=== PATIENT | female | born 1975 | race Caucasian/White ===

== ENCOUNTER 2018-03-28 16:56 | Emergency (ER) | payer BC ==
[~2018-03-28] VITALS: Ht 160 cm; Wt 64.4 kg
[~2018-03-28 16:56] MED LIST: BUSPIRONE HCL5 MG PO; CYMBALTA30 MG PO; LOSARTAN POTASS50 MG PO
[2018-03-28] MEDS ORDERED: ACETAMINOPHEN 325 MG TAB ONE (19:12)
[2018-03-28] MEDS ORDERED: ACETAMINOPHEN 325 MG TAB PO ONE ×2 (19:15→19:30)
--- NOTE | 2018-03-28 20:27 | Diagnostic Imaging Report ---
History: Fall, pain Comparison studies:None Technique: Axial images were obtained from the brain and cervical spine. Coronal and sagittal images reconstructed from the axial data. Intravenous contrast: None Findings: Head CT: Scalp/skull: No acute abnormalities. Left frontoparietal craniotomy changes. No fractures, blastic or lytic lesions. Brain sulci: Mildly prominent, more than expected for patients age. Ventricles: Normal in size and configuration. No hydrocephalus. Extra-axial spaces: No masses. No fluid collections. Parenchyma: No abnormal densities. No masses, hemorrhage, acute or chronic cortical vascular insults. Sellar/suprasellar region: No abnormalities. Craniocervical junction: Patent foramen magnum. No Chiari one malformation. Cervical spine CT: Fractures: None. Soft tissues: No gross abnormalities. Atlantoaxial articulation: No acute abnormality. Alignment: Mild reversal of the normal lordosis centered at C5-6. No scoliosis. Cervicomedullary junction: No abnormalities. Patent foramen magnum. Vertebrae: No infection or neoplasm. Degenerative changes: None. Incidental findings: At C5-6, disc degeneration and posterior disc osteophyte complex with patent canal and foramina. At C6-7, disc degeneration, disc osteophyte complex and uncinate process hypertrophy results in mild spinal canal stenosis and moderate foraminal narrowing . Impression: Head CT: 1. No acute abnormality. Cervical spine CT: 1. No acute abnormalities. 2. Cannot exclude ligament, spinal cord and or vascular abnormalities on the basis of this examination. Signed by: DR Eugene Araujo M.D. on 03/28/2018 8:24 PM
[2018-03-28 22:06] VITALS: BP 139/79
== END 2018-03-28 22:07 | disposition home or self-care (01) ==
LOC: ER 16:56
DX: S00.03XA Contusion of scalp, initial encounter (principal); M54.2 Cervicalgia; S16.1XXA Strain of muscle, fascia and tendon at neck level, initial encounter; W18.2XXA Fall in (into) shower or empty bathtub, initial encounter; Y93.E1 Activity, personal bathing and showering; Y92.002 Bathroom of unspecified non-institutional (private) residence as the place of occurrence of the external cause
CPT/HCPCS: 70450; 72125; 99284

== ENCOUNTER 2018-07-26 22:36 | Inpatient (IN) | payer BC ==
[~2018-07-26] VITALS: Ht 160 cm; Wt 66.3 kg
[2018-07-26] MEDS ORDERED: ONDANSETRON HCL INJ 2 MG/ML VIAL IV STA (22:50)
[2018-07-26] MEDS ORDERED: PANTOPRAZOLE 40 MG 10ML VIAL IV STA (22:50)
[2018-07-26] MEDS ORDERED: SODIUM CHLORIDE 0.9% 1000ML 1,000 ML IV ONE (23:00)
[2018-07-26 23:14] LABS: BASOPHILS % 0.3 % (0.0-1.0); EOSINOPHILS # (AUTO) 0.1 (0.0-0.4); EOSINOPHILS % 1.1 % (0.0-6.0); HEMATOCRIT 38.5 % (34.2-44.1); HEMOGLOBIN 12.9 g/dL (12.0-16.0); LYMPHOCYTES # (AUTO) 2.3 (1.0-3.2); LYMPHOCYTES % 19.5 % (18.0-39.1); MEAN CORPUSCULAR HEMOGLOBIN 30.4 pg (28-32); MEAN CORPUSCULAR HGB CONC 33.5 g/dL (31-35); MEAN CORPUSCULAR VOLUME 90.8 fL (81-99); MONOCYTES # (AUTO) 0.8 (0.2-0.8); MONOCYTES % 6.5 % (4.4-11.3); NEUTROPHILS # (AUTO) 8.5 (2.1-6.9); NEUTROPHILS % 72.3 % (38.7-80.0); PLATELET COUNT 437 x10e3/uL (140-360); RED BLOOD COUNT 4.24 x10e6/uL (3.6-5.1); RED CELL DISTRIBUTION WIDTH 12.8 % (11.7-14.4)
[2018-07-26 23:17] LABS: CLARITY,URINE CLEAR (CLEAR); COLOR,URINE YELLOW (YELLOW); KETONES,URINE NEGATIVE (NEGATIVE); LEUKOCYTE ESTERASE ,URINE NEGATIVE (NEGATIVE); NITRITE,URINE NEGATIVE (NEGATIVE); PROTEIN,URINE DIPSTICK NEGATIVE (NEGATIVE)
[2018-07-26 23:18] LABS: BILIRUBIN,URINE NEGATIVE (NEGATIVE); EPITHELIAL CELLS,URINE RARE /LPF; MUCUS,URINE FEW (RARE); RBC,URINE 0-5 /HPF (0-5); RENAL EPITHELIAL CELLS,URINE RARE; URINE UROBILINOGEN 0.2 mg/dL (0.2 - 1); WBC,URINE (MAN) 0-5 /HPF (0-5)
[2018-07-26 23:35] LABS: ALANINE AMINOTRANSFERASE 32 IU/L (0-55); ALBUMIN 3.9 g/dL (3.5-5.0); ALBUMIN/GLOBULIN RATIO 1.3 (0.8-2.0); ALKALINE PHOSPHATASE 86 IU/L (40-150); AMYLASE 49 U/L (25-125); ANION GAP 12.8 mmol/L (8-16); BLOOD UREA NITROGEN 6 mg/dL (7-26); BUN/CREATININE RATIO 8 (6-25); CALCIUM 9.4 mg/dL (8.4-10.2); CARBON DIOXIDE 25 mmol/L (22-29); CHLORIDE 104 mmol/L (98-107); CREATININE, SERUM 0.73 mg/dL (0.57-1.11); EST GLOMERULAR FILTRATION RATE > 60 ML/MIN (60-); GLUCOSE 97 mg/dL (74-118); LIPASE 22 U/L (8-78); POTASSIUM 3.8 mmol/L (3.5-5.1); SODIUM 138 mmol/L (136-145)
[2018-07-27] VITALS (8 sets, daily range): BP systolic 122–129; BP diastolic 61–68
[2018-07-27] MEDS ORDERED: SODIUM CHLORIDE 0.9% 50ML 50 ML ONE (00:12)
[2018-07-27] MEDS ORDERED: IOPAMIDOL 370 MG/ML 200 ML INFUS..BTL INJ ONE (00:13)
--- NOTE | 2018-07-27 01:46 | Diagnostic Imaging Report ---
EXAM: CT Abdomen and Pelvis WITH contrast INDICATION: Abdominal pain COMPARISON: None. TECHNIQUE: Abdomen and pelvis were scanned utilizing a multidetector helical scanner from the lung base to the pubic symphysis after administration of IV contrast. Coronal and sagittal reformations were obtained. Routine protocol was performed. Scan was performed when during portal venous phase. IV CONTRAST: 100 mL of Isovue-370 ORAL CONTRAST: Water RADIATION DOSE: Total DLP: 198.32 mGy*cm Estimated effective dose: (DLP x 0.015 x size factor) mSv COMPLICATIONS: None FINDINGS: LINES and TUBES: None. LOWER THORAX: Unremarkable HEPATOBILIARY: No focal hepatic lesions. There is evidence of central intrahepatic and extrahepatic biliary dilatation with CBD measuring 0.9 cm in diameter. GALLBLADDER: There are few radiolucent stones in the gallbladder. No wall thickening. SPLEEN: No splenomegaly. PANCREAS: No focal masses or ductal dilatation. ADRENALS: No adrenal nodules KIDNEYS/URETERS: Kidneys enhance symmetrically. No hydronephrosis. No cystic or solid mass lesions. No stones. GI TRACT: No abnormal distention, wall thickening, or evidence of bowel obstruction. Appendix is normal. PELVIC ORGANS/BLADDER: The uterus is absent. Bilateral ovaries are unremarkable. LYMPH NODES: No lymphadenopathy. VESSELS: There is mild atherosclerotic disease in the aorta and major arterial branches. PERITONEUM / RETROPERITONEUM: No free air or fluid. BONES: Unremarkable. SOFT TISSUES: Unremarkable. IMPRESSION: 1. Dilatation of the CBD measuring 0.9 cm in diameter with evidence of cholelithiasis in the gallbladder may suggest choledocholithiasis in the appropriate clinical setting. Correlation with direct bilirubin is recommended. 2. Otherwise, no evidence of acute intra-abdominal or pelvic abnormality Signed by: Dr. aYsir Mello M.D. on 07/27/2018 1:43 AM
[2018-07-27] MEDS ORDERED: MORPHINE SULFATE 2 MG/ML SYR IV STA (01:55)
[2018-07-27] MEDS ORDERED: ADDERALL 20 MG20 MG PO ×2 (02:05→20:14)
[2018-07-27] MEDS ORDERED: CLONAZEPAM0.5 M1 PO (02:05)
[2018-07-27] MEDS ORDERED: FLUOXETINE HCL20 MG PO (02:05)
[2018-07-27] MEDS ORDERED: HYDRALAZINE HCL50 MG PO (02:05)
[2018-07-27] MEDS ORDERED: NEXIUM40 MG PO (02:05)
[2018-07-27] MEDS ORDERED: SUCRALFATE1 GM PO (02:05)
[2018-07-27] MEDS ORDERED: BUSPIRONE HCL15 MG PO (02:05)
[2018-07-27] MEDS ORDERED: ONDANSETRON HCL INJ 2 MG/ML VIAL IV STA (02:08)
[2018-07-27] MEDS: SODIUM CHLORIDE 0.9% 1000ML 1,000 ML IV SCH ×3 (02:11→18:02)
[2018-07-27] MEDS: METRONIDAZOLE 500MG/NS 100ML 100 ML IV SCH ×4 (02:26→18:20)
[2018-07-27] MEDS: CEFOXITIN 1GM/ NS 50ML ML IV SCH ×2 (02:27→06:17)
[2018-07-27] MEDS ORDERED: CEFOXITIN SOD 1 GM VIAL ONE ×2 (02:31→04:44)
[2018-07-27] MEDS: ONDANSETRON HCL INJ 2 MG/ML VIAL IV PRN ×2 (03:44→20:23)
[2018-07-27] MEDS: MORPHINE SULFATE 2 MG/ML SYR IV PRN ×4 (05:30→18:25)
--- NOTE | 2018-07-27 06:56 | Consultation ---
DATE OF CONSULTATION: July 27, 2018 Patient is a 43-year-old female who presents with complaints of epigastric abdominal pain with back pain. Says the pain started 4 days ago. She has not had similar pains in the past. She said it woke her up out of sleep, and the pain has persisted, but is now more back pain. She came to the emergency room where evaluation was done, which revealed calcified gallstones, as well as dilated bile duct on CT scan. Patient says the back pain persists. She has not had any fever. PAST MEDICAL HISTORY: Significant for anxiety disorder, attention deficit disorder. She has had previous intracranial surgery following trauma several years ago. ALLERGIES: SHE HAS ALLERGIES TO VALIUM AND HYDROCODONE. MEDICATIONS: Include Adderall, buspirone, clonazepam, Nexium, fluoxetine, hydralazine, and Carafate. FAMILY HISTORY: Noncontributory. SOCIAL HISTORY: The patient does not smoke cigarettes or drink alcohol. REVIEW OF SYSTEMS: As stated above. She has not had any fever or weight loss. PHYSICAL EXAMINATION GENERAL: The patient is awake and alert and in no distress. VITALS: Normal. She is afebrile. HEENT: Reveals no scleral icterus. NECK: Has no masses. LUNGS: Equal breath sounds are clear bilaterally. CARDIAC: Regular rate and rhythm with no murmur. ABDOMEN: Mildly tender in the epigastrium. There is no mass. There is no organomegaly. There are no signs of peritonitis. EXTREMITIES: Have no edema. NEUROLOGIC: Grossly intact. LAB TESTS: White blood cell count 11.7, hemoglobin 12.9, hematocrit 38.5. Chemistries are normal. Normal liver function tests. ASSESSMENT: A 43-year-old female with symptoms suggestive of biliary colic with possible acute cholecystitis with cholelithiasis. She has dilated bile duct on computerized tomography scan. PLAN: Evaluate with MRCP. After this is done, she will likely benefit from cholecystectomy. Surgery was explained to the patient, including risks, benefits and alternatives. She understands the surgery. She has had the opportunity to ask questions. She is aware of the possible need for open surgery. Thank you for asking me to see Ms. Bauer. Job#: [id number] [place]
--- NOTE | 2018-07-27 07:11 | History and Physical ---
This patient came in with upper abdominal pain radiating to the back. HISTORY OF PRESENT ILLNESS: This is Ms. Bauer with a history of chronic depression, chronic anxiety and gastritis was in her usual state of health until the patient started to have abdominal pain described as 9/10 in intensity, which radiated to the back. Worsened by food and not relieved by any medications. The patient did take Tylenol and it did not help it. With the symptoms getting worse, the patient came into the emergency room. Was found to have cholelithiasis and cholecystitis. Was admitted for the same. PAST MEDICAL HISTORY: History of hypertension, history of renal stones, history of anxiety, history of depression, history of attention deficit disorder. PAST SURGICAL HISTORY: History of hysterectomy and also craniotomy in 1989, reason not sure. MEDICATIONS: See medical reconciliation list. ALLERGIES: SEE THE PATIENT'S NOTES. REVIEW OF SYSTEMS: Negative for chest pain. No shortness of breath. No nausea, vomiting or diarrhea. No constipation. No black stools. No hematemesis. No hematochezia. No blurry vision. No chest pain as mentioned. No difficulty breathing or shortness of breath. No diplopia. No blurry vision. PHYSICAL EXAMINATION GENERAL: The patient is alert and oriented times 3. VITALS: Blood pressure is 131/85, temperature 97.2, oxygen satting at 98%. HEENT: Normal. NECK: No JVD. CV: S1 and S2 normal. Regular rate and rhythm. LUNGS: Clear to auscultation bilaterally. ABDOMEN: Tenderness in the right upper quadrant. BACK: No CVA tenderness. SKIN: Normal. EXTREMITIES: No clubbing. No cyanosis. No edema. NEUROLOGIC: Alert and oriented times 3. LABS: Abdomen CT showed dilated CBD and gallstones. CBC was normal except for white count of 11.7. Chemistries are normal. UA was normal. ASSESSMENT: The patient is admitted for cholecystitis. A consult with Dr. Gonsalez was done. The patient agreed with cholecystectomy. Magnetic resonance cholangiopancreatography will be done because of the dilated bowel loops. Further recommendations per clinical course. Once magnetic resonance cholangiopancreatography has been done and the patient has been cleared, the patient will undergo a cholecystectomy. Will restart her home medications and control her blood pressure and lytes as needed. Further recommendations per clinical course. Job#: [id number] RI
[2018-07-27] MEDS: SUCRALFATE 1 GM TAB PO SCH ×4 (08:30→20:23)
[2018-07-27] MEDS: PANTOPRAZOLE SOD 40 MG TABEC PO SCH (08:30)
[2018-07-27] MEDS ORDERED: FLUOXETINE HCL 20 MG CAP PO SCH (09:00)
[2018-07-27] MEDS ORDERED: NON-FORMULARY MEDICATION (Buspirone Hcl 15 MG) PO SCH (09:00)
[2018-07-27] MEDS ORDERED: NON-FORMULARY MEDICATION (Clonazepam 0.5 MG) PO SCH (09:00)
[2018-07-27] MEDS ORDERED: NON-FORMULARY MEDICATION (Hydralazine Hcl 50 MG) PO SCH (09:00)
[2018-07-27] MEDS: CLONAZEPAM 0.5 MG TAB PO SCH ×2 (09:00→20:23)
[2018-07-27] MEDS: HYDRALAZINE HCL 25 MG TAB PO SCH ×2 (09:56→18:20)
[2018-07-27] MEDS: BUSPIRONE HCL 5 MG TAB PO SCH ×2 (09:56→18:20)
[2018-07-27] MEDS: FLUOXETINE HCL 20 MG CAP PO SCH ×2 (09:56→18:20)
[2018-07-27] MEDS: CEFOXITIN SOD 1 GM VIAL IV SCH ×2 (13:31→20:23)
--- NOTE | 2018-07-27 15:53 | Diagnostic Imaging Report ---
EXAM: MRI of the abdomen without contrast with MRCP INDICATION: Gallstones with dilated common bile duct; concern for choledocholithiasis.. COMPARISON: None. Correlation with CT abdomen pelvis dated 09/25/2018. TECHNIQUE: Multiplanar and multisequence imaging was performed of the abdomen. T1 and T2-weighted images were obtained with and without contrast. T1-weighted in and [id number]. M.R.C.P. technique: Multiplanar, multisequence MRCP was performed, with sequences including coronal turbo spin-echo T1-weighted scans, [facility] MRCP scans, coronal spin, coronal MPR 2, [facility], [facility] MRCP LUNA. Discussion: LOWER THORAX: Unremarkable. HEPATOBILIARY: No focal hepatic lesions. Mild central intrahepatic biliary dilatation. Mild to moderate dilatation of the common bile duct up to 1.2 cm in diameter. There are numerous punctate calculi within the common bile duct. GALLBLADDER: Numerous punctate calculi within the gallbladder lumen. The gallbladder wall is asymmetric thickened, measuring up to 8.4 mm. SPLEEN: No splenomegaly. PANCREAS: No focal masses or ductal dilatation. ADRENALS: No adrenal nodules KIDNEYS/URETERS: Kidneys enhance symmetrically. No hydronephrosis. 2 small T2 hyperintense lesions in the upper pole of the left kidney the largest measuring 7.6 mm consistent with a small cysts. No stones. GI TRACT: No abnormal distention, wall thickening, or evidence of bowel obstruction. LYMPH NODES: No lymphadenopathy. VESSELS: Unremarkable. PERITONEUM / RETROPERITONEUM: No significant ascites. BONES: No acute osseous abnormality. SOFT TISSUES: Unremarkable. IMPRESSION: 1. Choledocholithiasis. Mild to moderate dilatation of the common bile duct, and mild central intrahepatic biliary dilatation. 2. Cholelithiasis. Diffuse asymmetric gallbladder wall thickening is nonspecific, however, raise concern for cholecystitis in the proper clinical setting. Correlate clinically for cholecystitis. Recommend surgical consultation. Signed by: Dr. Joaquina Gerard M.D. on 07/27/2018 3:50 PM
[2018-07-28] VITALS (8 sets, daily range): BP systolic 96–117; BP diastolic 49–76
[2018-07-28] MEDS: METRONIDAZOLE 500MG/NS 100ML 100 ML IV SCH ×3 (00:04→12:00)
[2018-07-28] MEDS: SODIUM CHLORIDE 0.9% 1000ML 1,000 ML IV SCH ×2 (00:51→10:40)
[2018-07-28] MEDS: ONDANSETRON HCL INJ 2 MG/ML VIAL IV PRN ×2 (00:52→06:20)
[2018-07-28] MEDS: MORPHINE SULFATE 2 MG/ML SYR IV PRN ×2 (00:52→06:20)
[2018-07-28 05:50] LABS: BASOPHILS % 0.3 % (0.0-1.0); EOSINOPHILS % 0.2 % (0.0-6.0); HEMATOCRIT 36.6 % (34.2-44.1); LYMPHOCYTES # (AUTO) 1.4 (1.0-3.2); LYMPHOCYTES % 12.6 % (18.0-39.1); MEAN CORPUSCULAR HEMOGLOBIN 30.5 pg (28-32); MEAN CORPUSCULAR HGB CONC 32.8 g/dL (31-35); MEAN CORPUSCULAR VOLUME 93.1 fL (81-99); MONOCYTES # (AUTO) 0.6 (0.2-0.8); MONOCYTES % 5.1 % (4.4-11.3); NEUTROPHILS # (AUTO) 9.3 (2.1-6.9); NEUTROPHILS % 81.5 % (38.7-80.0); PLATELET COUNT 354 x10e3/uL (140-360); RED BLOOD COUNT 3.93 x10e6/uL (3.6-5.1); RED CELL DISTRIBUTION WIDTH 12.5 % (11.7-14.4)
[2018-07-28] MEDS: PANTOPRAZOLE SOD 40 MG TABEC PO SCH (07:30)
[2018-07-28] MEDS: SUCRALFATE 1 GM TAB PO SCH ×4 (07:30→21:05)
[2018-07-28 08:08] LABS: ALANINE AMINOTRANSFERASE 39 IU/L (0-55); ALBUMIN 3.2 g/dL (3.5-5.0); ALBUMIN/GLOBULIN RATIO 1.2 (0.8-2.0); ALKALINE PHOSPHATASE 97 IU/L (40-150); AMYLASE 33 U/L (25-125); ANION GAP 14.9 mmol/L (8-16); BLOOD UREA NITROGEN < 5 mg/dL (7-26); CALCIUM 8.6 mg/dL (8.4-10.2); CARBON DIOXIDE 20 mmol/L (22-29); CHLORIDE 106 mmol/L (98-107); CREATININE, SERUM 0.69 mg/dL (0.57-1.11); EST GLOMERULAR FILTRATION RATE > 60 ML/MIN (60-); GLUCOSE 85 mg/dL (74-118); LIPASE 15 U/L (8-78); POTASSIUM 3.9 mmol/L (3.5-5.1); SODIUM 137 mmol/L (136-145)
[2018-07-28 08:11] LABS: BUN/CREATININE RATIO 7 (6-25)
[2018-07-28] MEDS: BUSPIRONE HCL 5 MG TAB PO SCH ×2 (09:00→17:00)
[2018-07-28] MEDS: FLUOXETINE HCL 20 MG CAP PO SCH ×2 (09:00→17:22)
[2018-07-28] MEDS: CLONAZEPAM 0.5 MG TAB PO SCH ×2 (09:00→21:05)
[2018-07-28] MEDS: HYDRALAZINE HCL 25 MG TAB PO SCH ×2 (09:30→17:00)
[2018-07-28] MEDS ORDERED: IOPAMIDOL 610MG/1ML 300 MG/ML VIAL IV ONE (11:38)
[2018-07-28] MEDS ORDERED: LIDOCAINE HCL (LTA) 4 ML SOLN ONE (11:56)
[2018-07-28] MEDS ORDERED: GLUCAGON FOR INJ 1 MG VIAL ONE (12:25)
--- NOTE | 2018-07-28 13:49 | Diagnostic Imaging Report ---
Exam: ERCP History: Choledocholithiasis Comparison: MRCP 07/27/2018 Technique: TR CT was performed. Contrast material was injected into the biliary tree and fluoroscopic images obtained without a radiologist present. Findings: A guidewire is seen traversing the common bile duct and terminating in the cystic duct. Injection of contrast material shows multiple filling defects compatible with calculi as discussed on comparison MRCP. later images show a large filling defect in the distal common bile duct compatible with a balloon catheter; later images show opacification of the nondilated intrahepatic biliary system. Subsequent images show filling defects more proximally within the common hepatic duct and cystic duct. It is unclear whether these represent proximally migrated calculi or air bubbles related to biliary manipulation. Final image shows an occlusion balloon in the distal common bile duct with faint contrast opacification of the biliary tree. Impression: 1. ERCP images as above. Refer to clinical report for full details. Signed by: Dr. Jacek Charles M.D. on 07/28/2018 1:46 PM
[2018-07-28] MEDS: LACTATED RINGER'S 1,000 ML IV SCH ×2 (14:00→22:48)
[2018-07-28] MEDS: PIPER-TAZ 3.375 GM 50 ML IV SCH ×2 (14:00→21:05)
[2018-07-28] MEDS ORDERED: MORPHINE SULFATE INJ 4 MG/ML INJ IV PRN (16:45)
[2018-07-28] MEDS ORDERED: MORPHINE SULFATE 2 MG/ML SYR IV PRN (16:45)
[2018-07-28] MEDS ORDERED: FENTANYL CITRATE/PF 100MCG/2 ML INJ ONE (17:47)
[2018-07-28] MEDS ORDERED: MIDAZOLAM HCL 2 MG/2 ML VIAL ONE (17:47)
--- NOTE | 2018-07-28 18:52 | Consultation ---
DATE OF CONSULTATION: July 28, 2018 GI CONSULT NOTE REFERRING PHYSICIAN: Dr. Jacek Gonsalez. PRIMARY CARE PHYSICIAN: Noble Maddox MD REASON FOR CONSULTATION: Symptomatic choledocholithiasis. HISTORY OF PRESENT ILLNESS: A 43-year-old very pleasant white female with past medical history of depression, anxiety, hypertension who got admitted with recurrent episode of nausea, vomiting, and upper abdominal pain. This has been going on for the last 2 weeks. Coupe of nights ago, her symptoms got worst, she woke up with intense abdominal pain associated with nausea and vomiting. Patient arrived in the emergency room. Here, her blood work was unremarkable. Imaging study shows dilated common bile duct as well as gallstones. No pancreatitis. Liver enzymes were normal. Lipase level normal. Due to dilated duct, she underwent MRCP that showed mild central intrahepatic biliary dilatation. Moderate dilatation of common bile duct to 1.2 cm, multiple punctate calculi seen within common bile duct suggestive of choledocholithiasis. GI is being consulted for ERCP. Dr. Gonsalez has been consulted for cholecystectomy. Patient does not have any associated fever or chills at this point of time. She is getting intravenous IV fluids and empirically IV metronidazole. REVIEW OF SYSTEMS: Twelve-point system reviewed. Symptomatology is limited as per HPI. PAST MEDICAL HISTORY: Hypertension, anxiety, renal stones, depression, and attention deficit disorder. PAST SURGICAL HISTORY: Laparoscopic hysterectomy and craniotomy for reason unclear. FAMILY HISTORY: Noncontributory. Negative for any GI or EVENT EXECUTIVE malignancies. SOCIAL HISTORY: No smoking, alcohol, or any illicit drug use. ALLERGIES: DIAZEPAM AND HYDROCODONE. HOME MEDICATIONS: Amphetamine 20 mg twice daily, buspirone 15 mg twice daily, clonazepam 0.5 mg twice daily, esomeprazole 40 mg daily, fluoxetine 20 mg daily, hydralazine 50 mg daily, and sucralfate 1 gram 4 times daily. PHYSICAL EXAMINATION VITAL SIGNS: Temperature 97, pulse 96, respirations 16, blood pressure ranging from 106/61 to 96/52, oxygen saturation 99% on 2 liter of nasal cannula. GENERAL: Not in any acute distress. HEENT: Oral mucosa is moist. Anicteric sclerae. CVS: S1, S2 regular. LUNGS: Bilaterally grossly clear. ABDOMEN: Soft. Mild palpable epigastric tenderness, no right upper quadrant tenderness. Palmer's sign is negative. No rebound, rigidity, or guarding. Positive bowel sounds. EXTREMITIES: Warm. No leg edema. LABS: Electrolytes normal. Liver enzymes normal. Lipase normal. WBC 11.47, hemoglobin 12, hematocrit 36.6, MCV 93, and platelet count 354. MRCP showed: 1. Choledocholithiasis. [id number] dilatation of the common bile duct and mild central intrahepatic biliary dilatation. 2. Cholelithiasis. Diffuse asymmetric gallbladder wall thickening is nonspecific. However, raise concern for cholecystitis in the proper clinical setting. Correlate clinically for cholecystitis. Recommend surgical consultation. IMPRESSION: Symptomatic choledocholithiasis with gout, any evidence of ascending cholangitis. Patient is having good biliary drainage without any biliary obstruction. RECOMMENDATIONS: IV fluids, change IV metronidazole to IV piperacillin for prevention of ascending cholangitis. Patient is n.p.o. ERCP today. Risks, benefits, and alternatives including doing nothing regarding the ERCP explained to the patient. The risk of pancreatitis related to ERCP was also discussed. Patient verbalized full understanding and agreed to proceed with procedure. I thank, Dr. Dickey as well as Dr. Gonsalez for allowing me to participate in the care of this patient. Job#: [id number] TEAGAN
[2018-07-28] MEDS ORDERED: ROCURONIUM BROMIDE 10 MG/ML 5ML VIAL ONE (19:38)
[2018-07-28] MEDS ORDERED: PROPOFOL IV EMULSION 10 MG/ML 20 ML VIAL ONE (19:38)
[2018-07-28] MEDS ORDERED: SEVOFLURANE INHAL SOLN 250 ML PEN BTL ONE (19:38)
[2018-07-28] MEDS ORDERED: DEXAMETHASONE SOD PHOS INJ 4 MG/ML VIAL ONE (19:38)
[2018-07-28] MEDS ORDERED: NEOSTIGMINE 5 MG/5ML SYR ONE (19:38)
[2018-07-28] MEDS ORDERED: GLYCOPYRROLATE INJ 1MG/ 5 ML SYR ONE (19:38)
[2018-07-28] MEDS ORDERED: ONDANSETRON HCL INJ 2 MG/ML VIAL ONE (19:38)
[2018-07-28] MEDS ORDERED: LIDOCAINE HCL 2% LOCAL INJ 5 ML SDV VIAL INJ ONE (19:38)
[2018-07-29] VITALS (7 sets, daily range): BP systolic 92–131; BP diastolic 50–68
[2018-07-29] MEDS: LACTATED RINGER'S 1,000 ML IV SCH ×3 (05:15→21:15)
[2018-07-29] MEDS: PIPER-TAZ 3.375 GM 50 ML IV SCH ×3 (05:22→21:34)
[2018-07-29] MEDS ORDERED: BUPIVACAINE HCL 0.5% INJ 30 ML VIAL INJ ONE (07:18)
[2018-07-29] MEDS: SUCRALFATE 1 GM TAB PO SCH ×4 (07:30→21:21)
[2018-07-29] MEDS: PANTOPRAZOLE SOD 40 MG TABEC PO SCH (07:30)
[2018-07-29] MEDS ORDERED: ONDANSETRON HCL INJ 2 MG/ML VIAL ONE ×2 (08:42→18:42)
[2018-07-29] MEDS ORDERED: FENTANYL CITRATE/PF 100MCG/2 ML INJ ONE ×2 (08:43→17:49)
--- NOTE | 2018-07-29 08:50 | Operative Report ---
DATE OF PROCEDURE: July 29, 2018 PREOPERATIVE DIAGNOSIS: Chronic cholecystitis and cholelithiasis. POSTOPERATIVE DIAGNOSIS: Chronic cholecystitis and cholelithiasis. PROCEDURES 1. Diagnostic laparoscopy. 2. Laparoscopic cholecystectomy. ORE MINER: None. ANESTHESIA: General endotracheal. INDICATIONS AND FINDINGS: Patient is a 43-year-old female who presented with complaints of abdominal pain. Workup revealed gallstones, as well as common bile duct stones. She had preop ERCP and stone removal. At surgery, the patient was found to have a gallbladder that was edematous containing multiple stones with some sludge. Cystic duct was about 3 mm in diameter. Common bile duct was about 6 mm in diameter. Liver, stomach and lower abdomen all appeared normal. TECHNIQUE: After adequate general endotracheal anesthesia with the patient in the supine position, the abdomen was prepped and draped in a sterile fashion with Abdullahi solution. Skin in the umbilicus was infiltrated with 0.5% Marcaine. Incision was made in the umbilicus. Abdominal wall was elevated and Veress needle was introduced. Pneumoperitoneum was then created. A 10-mm trocar and cannula was then passed through the umbilical wound. Laparoscopic camera was introduced. Initial laparoscopy revealed the gallbladder to be distended and edematous. Liver, stomach and lower abdomen all appeared normal. A 10-mm trocar and cannula was placed in the epigastrium and two 5-mm trocars and cannulas were placed in the right upper quadrant. These were placed under direct vision. Fundus of the gallbladder was grasped and retracted superiorly. Neck of the gallbladder was grasped and retracted laterally. Peritoneum over the neck of the gallbladder was incised. The gallbladder cystic duct junction was dissected free. Cystic artery was also dissected free. The neck of the gallbladder completely dissected free. Cystic artery divided between Hemoclips close the gallbladder. Cystic duct was milked back towards the gallbladder and then divided between Hemoclips with 3 clips being left on the common bile duct side. There was a posterior branch of the cystic artery which was also divided between Hemoclips close to the gallbladder. The gallbladder was dissected free from the liver using scissors and electrocautery. Once it was entirely free, it was placed into an Endopouch and brought out through the epigastric cannula. Contained multiple small stones. Gallbladder bed was inspected for hemostasis, which was seen to be adequate. It was irrigated with saline. All fluid aspirated and inspected once again for hemostasis, which was seen to be adequate. Instruments and cannulas were removed. Pneumoperitoneum was evacuated. Wounds were then closed. Fascia in the umbilical and epigastric wound closed with 0 Vicryl. Skin to all wounds closed with 4-0 Vicryl in a subcuticular fashion. Dermabond and sterile dressing were applied to each wound. Patient tolerated the procedure well. Estimated blood loss was 10 mL. There were no complications. All counts were correct. Patient was taken to the recovery room in satisfactory condition. Job#: [id number] RI cc:MD LORENZO MINOR MD
[2018-07-29] MEDS: (Amphet Asp/Amphet/D-Amphet (Adderall 20 Mg Tablet) 20 MG) PO SCH ×2 (09:00→16:33)
[2018-07-29] MEDS: FLUOXETINE HCL 20 MG CAP PO SCH ×2 (09:44→16:33)
[2018-07-29] MEDS: BUSPIRONE HCL 5 MG TAB PO SCH ×2 (09:44→16:33)
[2018-07-29] MEDS: CLONAZEPAM 0.5 MG TAB PO SCH ×2 (09:44→21:21)
[2018-07-29] MEDS: HYDRALAZINE HCL 25 MG TAB PO SCH ×2 (09:44→16:33)
[2018-07-29] MEDS: MORPHINE SULFATE INJ 4 MG/ML INJ IV PRN ×3 (10:56→21:34)
[2018-07-29] MEDS: ONDANSETRON HCL INJ 2 MG/ML VIAL IV PRN (16:01)
[2018-07-29] MEDS ORDERED: MIDAZOLAM HCL 2 MG/2 ML VIAL ONE (17:49)
[2018-07-29] MEDS: TRAMADOL/APAP 37.5MG-325MG TAB PO PRN (18:04)
[2018-07-29] MEDS ORDERED: LIDOCAINE HCL 2% LOCAL INJ 5 ML SDV VIAL INJ ONE (18:42)
[2018-07-29] MEDS ORDERED: NEOSTIGMINE 5 MG/5ML SYR ONE (18:42)
[2018-07-29] MEDS ORDERED: ROCURONIUM BROMIDE 10 MG/ML 5ML VIAL ONE (18:42)
[2018-07-29] MEDS ORDERED: PROPOFOL IV EMULSION 10 MG/ML 20 ML VIAL ONE (18:42)
[2018-07-29] MEDS ORDERED: GLYCOPYRROLATE INJ 1MG/ 5 ML SYR ONE (18:42)
[2018-07-29] MEDS ORDERED: SEVOFLURANE INHAL SOLN 250 ML PEN BTL ONE (18:42)
[2018-07-29] MEDS ORDERED: DEXAMETHASONE SOD PHOS INJ 4 MG/ML VIAL ONE (18:42)
[2018-07-30] VITALS (7 sets, daily range): BP systolic 106–135; BP diastolic 57–81
[2018-07-30] MEDS: PIPER-TAZ 3.375 GM 50 ML IV SCH ×3 (05:45→21:52)
[2018-07-30] MEDS: LACTATED RINGER'S 1,000 ML IV SCH ×2 (05:45→13:31)
[2018-07-30] MEDS: SUCRALFATE 1 GM TAB PO SCH (07:44)
[2018-07-30] MEDS: PANTOPRAZOLE SOD 40 MG TABEC PO SCH (07:44)
[2018-07-30] MEDS: CLONAZEPAM 0.5 MG TAB PO SCH ×2 (08:08→21:52)
[2018-07-30] MEDS: FLUOXETINE HCL 20 MG CAP PO SCH ×2 (08:08→17:15)
[2018-07-30] MEDS: BUSPIRONE HCL 5 MG TAB PO SCH (08:08)
[2018-07-30] MEDS: (Amphet Asp/Amphet/D-Amphet (Adderall 20 Mg Tablet) 20 MG) PO SCH ×2 (08:09→17:15)
[2018-07-30] MEDS: HYDRALAZINE HCL 25 MG TAB PO SCH ×2 (08:11→17:00)
[2018-07-30] MEDS: MORPHINE SULFATE INJ 4 MG/ML INJ IV PRN (08:38)
[2018-07-30] MEDS: ONDANSETRON HCL INJ 2 MG/ML VIAL IV PRN (08:38)
--- NOTE | 2018-07-30 12:09 | Progress Note ---
DATE: July 29, 2018 Patient was seen yesterday at bedside, progress note is being transcribed today. SUBJECTIVE: Patient has undergone laparoscopic cholecystectomy. Admits to some incisional pain; however, nausea and vomiting has resolved. She is tolerating solid food after surgery. Has not passed any stool; however, she is passing flatus. REVIEW OF SYSTEMS GENERAL: No fever or chills. RESPIRATORY: No cough or expectoration. CVS: No chest pain or palpitations. MEDICATIONS: Reviewed as per DEC. She is on intravenous piperacillin/tazobactam along with Ringer's lactate at 125 mL an hour. She is also on her other outpatient medication. She is getting morphine 3 mg IV every 3 hours as needed. PHYSICAL EXAMINATION VITAL SIGNS: Temperature 98.1, pulse 76, respirations 18, blood pressure 113/56, oxygen saturation 98% on room air. GENERAL: Not in any acute distress. Oral mucosa is moist. Anicteric sclerae. ABDOMEN: Soft, mild incisional tenderness in upper quadrant. No rebound, rigidity, or guarding. Bowel sounds minimally present. LABS: None today. IMPRESSION: Status post cholecystectomy, prior to that patient underwent endoscopic retrograde cholangiopancreatography and sphincterotomy for removal of common bile duct stones. PLAN: Postop care per surgery. Titrate IV fluid down to 75 mL an hour for maintenance. Since patient is getting morphine, therefore she is at the risk of developing opioid-induced constipation. She should be on daily standing bowel regimen. Job#: [id number]
[2018-07-30] MEDS: TRAMADOL/APAP 37.5MG-325MG TAB PO PRN ×2 (12:58→23:07)
[2018-07-30] MEDS: BUSPIRONE HCL 10 MG TABLET PO SCH (17:15)
[2018-07-30] MEDS: SENNA-S TABLET PO SCH (20:17)
[2018-07-31] VITALS (8 sets, daily range): BP systolic 111–134; BP diastolic 58–76
[2018-07-31] MEDS: LACTATED RINGER'S 1,000 ML IV SCH ×2 (04:03→17:23)
[2018-07-31] MEDS: PIPER-TAZ 3.375 GM 50 ML IV SCH ×3 (05:41→22:00)
[2018-07-31] MEDS: PANTOPRAZOLE SOD 40 MG TABEC PO SCH (08:23)
[2018-07-31] MEDS: CLONAZEPAM 0.5 MG TAB PO SCH ×2 (08:29→21:00)
[2018-07-31] MEDS: BUSPIRONE HCL 10 MG TABLET PO SCH ×2 (08:29→16:15)
[2018-07-31] MEDS: FLUOXETINE HCL 20 MG CAP PO SCH ×2 (08:29→16:15)
[2018-07-31] MEDS: (Amphet Asp/Amphet/D-Amphet (Adderall 20 Mg Tablet) 20 MG) PO SCH ×2 (08:29→16:15)
[2018-07-31] MEDS: HYDRALAZINE HCL 25 MG TAB PO SCH ×2 (08:29→16:15)
[2018-07-31] MEDS ORDERED: POLYETHYLENE GLYCOL 3350 17 GM PACK PO SCH (09:00)
[2018-07-31] MEDS: SENNA-S TABLET PO SCH (21:00)
--- OUTSIDE RECORDS SUMMARY | 2018-08-09 09:40 | XMS REPORT ---
Author Author [facility] Address Unknown Phone Unavailable Care Team Providers Care Marketing Database Analyst Name Role Phone Enrike WIGGINS Unavailable Unavailable Whitley FERRARO Unavailable Unavailable Problems This patient has no known problems. Allergies, Adverse Reactions, Alerts This patient has no known allergies or adverse reactions. Medications This patient has no known medications. Results Test Description Test Time Test Comments Text Results Atomic Results Result Comments MRI MRCP WO 2018-07-27 15:43:00 [place] [address] Patient Name: SUHAS KRAUS MR #: [id number] : 1975 Age/Sex: 43/F Req #: [id number] Adm Physician: KRISTINE WIGGINS MD Ordered by: AMPARO FRIAS MD Report #: [id number] Location: MED/SURG Room/Bed: [facility] Procedure: [id number] MRI/MRI MRCP WO Exam Date: Exam Time: REPORT STATUS: Signed EXAM: MRI of the abdomen without contrast with MRCP INDICATION: Gallstones with dilated common bile duct; concern for choledocholithiasis.. COMPARISON: None. Correlation with CT abdomen pelvis dated 09/25/2018. TECHNIQUE: Multiplanar and multisequence imaging was performed of the abdomen. T1 and T2-weighted images were obtained with and without contrast. T1-weighted in and [id number]. M.R.C.P. technique: Multiplanar, multisequence MRCP was performed, with sequences including coronal turbo spin-echo T1-weighted scans, [facility] MRCP scans, coronal spin, coronal MPR 2[facility], [facility] MRCP LUNA. Discussion: LOWER THORAX: Unremarkable. HEPATOBILIARY: No focal hepatic lesions. Mild central intrahepatic biliary dilatation. Mild to moderate dilatation of the common bile duct up to 1.2 cm in diameter. There are numerous punctate calculi within the common bile duct. GALLBLADDER: Numerous punctate calculi within the gallbladder lumen. The gallbladder wall is asymmetric thickened, measuring up to 8.4 mm. SPLEEN: No splenomegaly. PANCREAS: No focal masses or ductal dilatation. ADRENALS: No adrenal nodules KIDNEYS/URETERS: Kidneys enhance symmetrically. No hydronephrosis. 2 small T2 hyperintense lesions in the upper pole of the left kidney the largest measuring 7.6 mm consistent with a small cysts. No stones. GI TRACT: No abnormal distention, wall thickening, or evidence of bowel obstruction. LYMPH NODES: No lymphadenopathy. VESSELS: Unremarkable. PERITONEUM / RETROPERITONEUM: No significant ascites. BONES: No acute osseous abnormality. SOFT TISSUES: Unremarkable. IMPRESSION: 1. Choledocholithiasis. Mild to moderate dilatation of the common bile duct, and mild central intrahepatic biliary dilatation. 2. Cholelithiasis. Diffuse asymmetric gallbladder wall thickening is nonspecific, however, raise concern for cholecystitis in the proper clinical setting. Correlate clinically for cholecystitis. Recommend surgical consultation. Signed by: Dr. Joaquina Kovacs M.D. on 07/27/2018 3:50 PM Dictated By: AYLEEN KOVACS MD, MD [id number] Transcribed By: KRYSTYNA on 07/27/18 9752 COPY TO: AMPARO FRIAS MD CT ABDOMEN/PELVIS W 2018-07-27 01:30:00 [place] [address] Patient Name: SUHAS KRAUS MR #: [id number] : 1975 Age/Sex: 43/F Req #: [id number] Adm Physician: Ordered by: AMPARO FRIAS MD Report #: [id number] Location: ER Room/Bed: Procedure: [id number] CT/CT ABDOMEN/PELVIS W Exam Date: 07/27/18 Exam Time: 2357 REPORT STATUS: Signed EXAM: CT Abdomen and Pelvis WITH contrast INDICATION: Abdominal pain COMPARISON: None. TECHNIQUE: Abdomen and pelvis were scanned utilizing a multidetector helical scanner from the lung base to the pubic symphysis after administration of IV contrast. Coronal and sagittal reformations were obtained. Routine protocol was performed. Scan was performed when during portal venous phase. IV CONTRAST: 100 mL of Isovue-370 ORAL CONTRAST: Water RADIATION DOSE: Total DLP: 198.32 mGy*cm Estimated effective dose: (DLP x 0.015 x size factor) mSv COMPLICATIONS: None FINDINGS: LINES and TUBES: None. LOWER THORAX: Unremarkable HEPATOBILIARY: No focal hepatic lesions. There is evidence of central intrahepatic and extrahepatic bi liary dilatation with CBD measuring 0.9 cm in diameter. GALLBLADDER: There are few radiolucent stones in the gallbladder. No wall thickening. SPLEEN: No splenomegaly. PANCREAS: No focal masses or ductal dilatation. ADRENALS: No adrenal nodules KIDNEYS/URETERS: Kidneys enhance symmetrically. No hydronephrosis. No cystic or solid mass lesions. No stones. GI TRACT: No abnormal distention, wall thickening, or evidence of bowel obstruction. Appendix is normal. PELVIC ORGANS/BLADDER: The uterus is absent. Bilateral ovaries are unremarkable. LYMPH NODES: No lymphadenopathy. VESSELS: There is mild atherosclerotic disease in the aorta and major arterial branches. PERITONEUM / RETROPERITONEUM: No free air or fluid. BONES: Unremarkable. SOFT TISSUES: Unremarkable. IMPRESSION: 1. Dilatation of the CBD measuring 0.9 cm in diameter with evidence of cholelithiasis in the gallbladder may suggest ene docholithiasis in the appropriate clinical setting. Correlation with direct bilirubin is recommended. 2. Otherwise, no evidence of acute intra-abdominal or pelvic abnormality Signed by: Dr. Yasir Mello M.D. on 07/27/2018 1:43 AM Dictated By: YASIR ROME MD 2 Transcribed By: KRYSTYNA on 07/27/18142 COPY TO: AMPARO FRIAS MD CT CERVICAL SPINE WO [place] [address] Patient Name: SUHAS KRAUS MR #: [id number] : 1975 Age/Sex: 43/F Req #: [id number] Adm Physician: Ordered by: JANE VALE NP Report #: [id number] Location: ER Room/Bed: Procedure: [id number] CT/CT CERVICAL SPINE WO Exam Date: 03/28/18 Exam Time: 1929 REPORT STATUS: Signed History: Fall, pain Comparison studies:None Technique: Axial images were obtained from the brain and cervical spine. Coronal and sagittal images reconstructed from the axial data. Intravenous contrast: None Findings: Head CT: Scalp/skull: No acute abnormalities. Left frontoparietal craniotomy changes. No fractures, blastic or lytic lesions. Brain sulci: Mildly prominent, more than expected for patients age. Ventricles: Normal in size and configuration. No hydrocephalus. Extra-axial spaces: No masses. No fluid collections. Parenchyma: No abnormal densities. No masses, hemorrhage, acute or chronic cortical vascular insults. Sellar/suprasellar region: No abnormalities. Craniocervical junction: Patent foramen magnum. No Chiari one malformation. Cervical spine CT: Fractures: None. Soft tissues: No gross abnormalities. Atlantoaxial articulation: No acute abnormality. Alignment: Mild reversal of the normal lordosis centered at C5-6. No scoliosis. Cervicomedullary junction: No abnormalities. Patent foramen magnum. Vertebrae: No infection or neoplasm. Degenerative changes: None. Incidental findings: At C5- 6, disc degeneration and posterior disc osteophyte complex with patent canal and foramina. At C6-7, disc degeneration, disc osteophyte complex and uncinate process hypertrophy results in mild spinal canal stenosis and moderate foraminal narrowing . Impression: Head CT: 1. No acute abnormality. Cervical spine CT: 1. No acute abnormalities. 2. Cannot exclude ligament, spinal cord and or vascular abnormalities on the basis of this examination. Signed by: DR Eugene Araujo M.D. on 03/28/2018 8:24 PM Dictated By: EUGENE BOYD MD 23 Transcribed By: KRYSTYNA on 03/28/182023 COPY TO: JANE VALE OFFICE SERVICES ASSISTANT CT BRAIN WO [place] [address] Patient Name: SUHAS KRAUS MR #: [id number] : 1975 Age/Sex: 43/F Req #: [id number] Adm Physician: Ordered by: JANE VALE NP Report #: [id number] Location: ER Room/Bed: Procedure: [id number] CT/CT BRAIN WO Exam Date: 03/28/18 Exam Time: 0 REPORT STATUS: Signed History: Fall, pain Comparison studies:None Technique: Axial images were obtained from the brain and cervical spine. Coronal and sagittal images reconstructed from the axial data. Intravenous contrast: None Findings: Head CT: Scalp/skull: No acute abnormalities. Left frontoparietal craniotomy changes. No fractures, blastic or lytic lesions. Brain sulci: Mildly prominent, more than expected for patients age. Ventricles: Normal in size and configuration. No hydrocephalus. Extra-axial spaces: No masses. No fluid collections. Parenchyma: No abnormal densities. No masses, hemorrhage, acute or chronic cortical vascular insults. Sellar/suprasellar region: No abnormalities. Craniocervical junction: Patent foramen magnum. No Chiari one malformation. Cervical spine CT: Fractures: None. Soft tissues: No gross abnormalities. Atlantoaxial articulation: No acute abnormality. Alignment: Mild reversal of the normal lordosis centered at C5-6. No scoliosis. Cervicomedullary junction: No abnormalities. Patent foramen magnum. Vertebrae: No infection or neoplasm. Degenerative changes: None. Incidental findings: At C5- 6, disc degeneration and posterior disc osteophyte complex with patent canal and foramina. At C6-7, disc degeneration, disc osteophyte complex and uncinate process hypertrophy results in mild spinal canal stenosis and moderate foraminal narrowing . Impression: Head CT: 1. No acute abnormality. Cervical spine CT: 1. No acute abnormalities. 2. Cannot exclude ligament, spinal cord and or vascular abnormalities on the basis of this examination. Signed by: DR Eugene Araujo M.D. on 03/28/2018 8:24 PM Dictated By: EUGENE BOYD MD 23 Transcribed By: KRYSTYNA on 03/28/182023 COPY TO: JANE VALE NP
--- NOTE | 2018-10-10 01:18 | Discharge Summary ---
HOSPITAL COURSE: This patient came in with acute abdominal pain. Chronic cholecystitis with cholelithiasis was noted. Dr. Gonsalez was consulted. Patient underwent a cholecystectomy by Dr. Gonsalez on July 29, 2018. The patient did well after that. Patient did complain of some abdominal pain, did get better; gastritis did get better; and the patient was discharged home in a stable condition. FINAL DIAGNOSES 1. Gastritis. 2. Cholecystitis. 3. Anxiety. 4. Reflux esophagitis and elevated white count leukocytosis. Patient was discharged home in a stable condition. PROCEDURE DONE: Laparoscopic cholecystectomy. For further information, look in the chart. For medicines on discharge, look in the medical reconciliation sheet. KRISTINE WIGGINS MD Job#: [id number] CF
== END 2018-07-31 22:35 | disposition home or self-care (01) | DRG 418 ==
LOC: ER 22:36 → ERHOLD 07-27 02:08 → MED/SURG 07-27 02:45
PROVIDERS: ADMIT Family Medicine; ATTEND Family Medicine
PROC: 0FC98ZZ Extirpation of Matter from Common Bile Duct, Via Natural or Artificial Opening Endoscopic (ICD-10-PCS; 2018-07-28)
PROC: 0FT44ZZ Resection of Gallbladder, Percutaneous Endoscopic Approach (ICD-10-PCS; principal; 2018-07-29 08:00)
DX: K80.64 Calculus of gallbladder and bile duct with chronic cholecystitis without obstruction (principal); K31.5 Obstruction of duodenum; K29.70 Gastritis, unspecified, without bleeding; F32.9 Major depressive disorder, single episode, unspecified; I10 Essential (primary) hypertension; K21.9 Gastro-esophageal reflux disease without esophagitis; Z88.5 Allergy status to narcotic agent; Z88.8 Allergy status to other drugs, medicaments and biological substances; F41.9 Anxiety disorder, unspecified
CPT/HCPCS: 36415; 43260; 74177; 74181; 74328; 80053; 81001; 82150; 83690; 85025; 88304; 96361; 96374; 96375; 99284; J0694; J1100; J1610; J2001; J2250; J2270; J2405; J2543; J7030; J7120; Q9967

== ENCOUNTER 2018-08-07 09:49 | Emergency (ER) | payer BC ==
[~2018-08-07] VITALS: Ht 160 cm; Wt 66.2 kg
[~2018-08-07 09:49] MED LIST changes: +ADDERALL 20 MG20 MG PO; +BUSPIRONE HCL15 MG PO; +CLONAZEPAM0.5 M1 PO; +FLUOXETINE HCL20 MG PO; +HYDRALAZINE HCL50 MG PO; +NEXIUM40 MG PO; +SUCRALFATE1 GM PO
[2018-08-07] MEDS ORDERED: DEXAMETHASONE SOD PHOS 10 MG/1 ML VIAL INJ ONE (11:30)
[2018-08-07] MEDS ORDERED: FAMOTIDINE 20 MG TAB PO ONE (12:00)
[2018-08-07] MEDS ORDERED: DIPHENHYDRAMINE HCL 25 MG CAP PO ONE (12:00)
== END 2018-08-07 13:23 | disposition home or self-care (01) ==
LOC: ER 09:49
DX: L50.0 Allergic urticaria (principal); L23.9 Allergic contact dermatitis, unspecified cause; I10 Essential (primary) hypertension; F32.9 Major depressive disorder, single episode, unspecified
CPT/HCPCS: 99282; J1100